=== PATIENT | female | born 1970 | race Caucasian/White ===

== ENCOUNTER → 2018-08-14 | Day surgery (SDC) | payer SELFPAY ==
[~2018-08-14] VITALS: Ht 162.6 cm; Wt 58.1 kg
[~2018-08-14] MED LIST: HYCET 7.5 MG-3473 ML PO; LAMICTAL150 M1 PO; LATUDA60 M1 PO; LOVENOX40 MG/0.1 SC; MELATONIN PO; PROTONIX40 M3 PO; SEROQUEL XR400 M1 PO; SEROQUEL400 M1 PO
--- NOTE | 2018-08-14 16:09 | Operative Report ---
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 And upper back. Patient will likely need a skin tightening procedure but she would like to try only liposuction at this point. There is excess skin of the lateral and posterior lateral buttock and thigh region that would probably best be served with an incision which the patient does not want. We talked about the limitations of liposuction and fat grafting to provide tightening of the skin which will be difficult. He understood the risks as we discussed multiple times in the office including but not limited to infection pain numbness firm loss of skin bleeding hematoma seroma fat necrosis and oil cysts. We discussed in detail the recovery. That would be required to maximize the results of surgery. Patient states she is in agreement. No guarantees were given as to the results especially considering the limitations of the procedure without a skin excision posteriorly. She was marked in the standing position with using a measuring tape for the abdominoplasty and areas will be treated with liposuction and fat grafting. The danger zones of the buttock were marked. She was brought to the operating placed supine on the table Venodyne boots were placed intravenous antibiotics were given and general anesthesia was then established. The abdomen was prepped and draped in usual sterile fashion including the legs down to the mid leg. The mass and fluid was placed in the lower abdominal flap the upper medial thighs and medial knees. 2 small stab incisions liposuction was carried out after reasonable amount of time of those areas. The flap was then divided sharply and a central tunnel was made up to the xiphoid. 2 layer abdominal wall plication with nonabsorbable sutures was carried out from the xiphoid to the pubis. Patient was put in the semi-Cruz's position and the flap was closed in 3 layers over drain. Liposuction was carried out prior to the closure of the upper medial thighs as well as the medial knee and the incisions were closed with sutures and glue. The patient was then turned into the prone position and appropriately padded and put in the jackknife position. Small stab incisions were made posteriorly where tumescent fluid was injected into the upper lateral buttock low and mid back. Liposuction was then carried out of these areas using 3 and 4 cannulas with the safe technique. The fat was allowed to decant and was injected in the subcutaneous layer of the bilateral buttocks where was previously marked. Approximately 850 cc each side. Incisions were closed with sutures and glue and a compression garment was placed.
== END ==
LOC: STS 02:31
DX: Z41.1 Encounter for cosmetic surgery (principal); E65 Localized adiposity; Z98.84 Bariatric surgery status; L01.00 Impetigo, unspecified; I10 Essential (primary) hypertension
CPT/HCPCS: J0131; J0171; J0690; J2001; J2250; J3490; Q9968